=== PATIENT | female | born 2000 | race Caucasian/White ===

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

== ENCOUNTER 2019-09-30 21:23 | Emergency (ER) | payer OTHER ==
[~2019-09-30] VITALS: Ht 160 cm; Wt 51.8 kg
[2019-09-30 21:23] VITALS: BP 119/68
[2019-09-30] MEDS ORDERED: SERT-141 PO (21:27)
[2019-09-30] MEDS ORDERED: FAMO20TA PO (21:46)
[2019-09-30] MEDS ORDERED: FAMO1TAB25 PO (21:46)
[2019-09-30] MEDS ORDERED: PEPC1TAB5 PO (22:04)
== END 2019-09-30 22:14 | disposition home or self-care (01) ==
LOC: M ED 21:23
DX: K21.9 Gastro-esophageal reflux disease without esophagitis (principal)

== ENCOUNTER → 2023-05-23 | Outpatient (REF) | payer OTHER ==
[~2023-05-23] MED LIST changes: +FAMO10TA50 PO; +FAMO20TA PO; +PEPC1TAB5 PO; +SERT-141 PO
== END ==
LOC: M LAB REF 11:19
PROVIDERS: ATTEND Physician Assistant
DX: B34.9 Viral infection, unspecified (principal)

== ENCOUNTER → 2024-05-08 | Outpatient (REF) | payer BC ==
[2024-05-12 09:38] LABS: ANA PATTERN Nuclear, Speckled (NEGATIVE); ANA SCREEN, IFA POSITIVE (NEGATIVE)
[2024-05-12 16:31] LABS: ANCA SCREEN Negative (Negative)
== END ==
LOC: M LAB REF 12:40
PROVIDERS: ATTEND Physician Assistant Medical
DX: R53.83 Other fatigue (principal)